=== PATIENT | male | born 1985 | race Caucasian/White ===

== ENCOUNTER 2016-12-08 18:20 | Emergency (ER) | payer BC ==
[2016-12-08 18:41] VITALS: BP 117/58
[2016-12-08] MEDS ORDERED: Diphtheria,Pertussis(Acell),Tetanus Vaccine 0.5 ML Syringe IM ONE (19:04)
--- NOTE | 2016-12-08 19:10 | EDM.PDOC ---
ED HPI GENERAL MEDICAL PROBLEM - General Chief Complaint: General Stated Complaint: TETANUS SHOT Time Seen by Provider: 12/08/16 19:06 Source of Information: Reports: Patient - History of Present Illness INITIAL COMMENTS - FREE TEXT/NARRATIVE: HISTORY AND PHYSICAL: History of present illness: []Patient presents requesting a tetanus shot, is a small quarter inch laceration on has distal phalanx right second digit palmar surface, the nursing note is inaccurate there is no foreign body was a simple cut with a clean blade. Wound is clean dry no redness warmth or exudate, lesion occurred today, tendon function intact flexor and extensor entire limb neurologic clean and vascularly intact No fever nausea vomiting chills sweats Patient is requesting a tetanus shot as it is not know when his last tetanus shot was but likely approximately at age 16 Review of systems: As per history of present illness and below otherwise all systems reviewed and negative. Past medical history: As per history of present illness and as reviewed below otherwise noncontributory. Surgical history: As per history of present illness and as reviewed below otherwise noncontributory. Social history: No reported history of drug or alcohol abuse. Family history: As per history of present illness and as reviewed below otherwise noncontributory. Physical exam: HEENT: Atraumatic, normocephalic, pupils reactive, negative for conjunctival pallor or scleral icterus, mucous membranes moist, throat clear, neck supple, nontender, trachea midline. Lungs: Clear to auscultation, breath sounds equal bilaterally, chest nontender. Heart: S1S2, regular, negative for clicks, rubs, or JVD. Abdomen: Soft, nondistended, nontender. Negative for masses or hepatosplenomegaly. Negative for costovertebral tenderness. Pelvis: Stable nontender. Genitourinary: Deferred. Rectal: Deferred. Extremities: Atraumatic, negative for cords or calf pain. Neurovascular unremarkable. Neuro: Awake, alert, oriented. Cranial nerves II through XII unremarkable. Cerebellum unremarkable. Motor and sensory unremarkable throughout. Exam nonfocal. Skin as per history of present illness otherwise unremarkable Diagnostics: [] Therapeutics: []Standard wound care Patient placed his own Neosporin and Band-Aid Tetanus status is updated Impression: []Quarter inch laceration, no sutures required Definitive disposition and diagnosis as appropriate pending reevaluation and review of above. - Related Data Allergies Allergy/AdvReac Type Severity Reaction Status Date / Time Penicillins Allergy Hives Verified 12/08/16 18:38 sulfamethoxazole Allergy Hives Verified 12/08/16 18:38 [From Bactrim] trimethoprim [From Bactrim] Allergy Hives Verified 12/08/16 18:38 Home Meds: Home Meds . [No Known Home Meds] 12/08/16 [History] Past Medical History - Past Surgical History Musculoskeletal Surgical History: Reports: Other (See Below) Other Musculoskeletal Surgeries/Procedures:: hand surgery Social & Family History - Family History Family Medical History: Noncontributory - Tobacco Use Smoking Status *Q: Never Smoker - Recreational Drug Use Recreational Drug Use: No ED ROS GENERAL - Review of Systems Review Of Systems: ROS reveals no pertinent complaints other than HPI. ED EXAM, GENERAL - Physical Exam Exam: See Below Course - Vital Signs Last Recorded V/S: Last Vital Signs Temp 36.5 C 12/08/16 18:39 Pulse 74 12/08/16 18:39 Resp 18 12/08/16 18:39 BP 117/58 L 12/08/16 18:39 Pulse Ox 95 12/08/16 18:39 - Orders/Labs/Meds Orders: Active Orders 24 hr Category Date Time Status Vaccines to be Administered [RC] PER UNIT ROUTINE Care 12/08/16 19:04 Ordered Meds: Medications Discontinued Medications Generic Name Dose Route Start Last Admin Trade Name Freq PRN Reason Stop Dose Admin Diphtheria/Tetanus/Acell Pertussis 0.5 ml 12/08/16 19:04 Adacel IM 12/08/16 19:05 .ONCE ONE Departure - Departure Time of Disposition: 19:08 Disposition: Home, Self-Care 01 Condition: Good Clinical Impression: Laceration - Discharge Information Forms: ED Department Discharge Additional Instructions: Patient tetanus status was updated today Standard wound care instructions Keep wound clean and dry for 48 hours Return if redness warmth or pus drainage should this develop Follow-up with primary care as needed The following information is given to patients seen in the emergency department who are being discharged to home. This information is to outline your options for follow-up care. We provide all patients seen in our emergency department with a follow-up referral. The need for follow-up, as well as the timing and circumstances, are variable depending upon the specifics of your emergency department visit. If you don't have a primary care physician on staff, we will provide you with a referral. We always advise you to contact your personal physician following an emergency department visit to inform them of the circumstance of the visit and for follow-up with them and/or the need for any referrals to a consulting specialist. The emergency department will also refer you to a specialist when appropriate. This referral assures that you have the opportunity for follow-up care with a specialist. All of these measure are taken in an effort to provide you with optimal care, which includes your follow-up. Under all circumstances we always encourage you to contact your private physician who remains a resource for coordinating your care. When calling for follow-up care, please make the office aware that this follow-up is from your recent emergency room visit. If for any reason you are refused follow-up, please contact the [facility] emergency department at and asked to speak to the emergency department charge nurse. - My Orders Last 24 Hours: My Active Orders 12/08/16 19:04 Vaccines to be Administered [RC] PER UNIT ROUTINE - Assessment/Plan Last 24 Hours: My Active Orders 12/08/16 19:04 Vaccines to be Administered [RC] PER UNIT ROUTINE
== END 2016-12-08 19:15 | disposition home or self-care (01) ==
LOC: MW.ED 18:20
DX: S61.210A Laceration without foreign body of right index finger without damage to nail, initial encounter (principal); Z23 Encounter for immunization; Z98.890 Other specified postprocedural states; Z88.0 Allergy status to penicillin; Z88.1 Allergy status to other antibiotic agents; Z88.2 Allergy status to sulfonamides; W45.8XXA Other foreign body or object entering through skin, initial encounter
CPT/HCPCS: 90471; 90715; 99282; 99282-25